=== PATIENT | female | born 1965 | race Caucasian/White ===

== ENCOUNTER 2019-04-27 15:46 | Inpatient (IN) | payer OTHER, BC ==
[~2019-04-27] VITALS: Ht 162.6 cm; Wt 76.2 kg
[2019-04-27 20:12] VITALS: BP 108/66
[2019-04-27] MEDS ORDERED: ACETAMINOPHEN 325 MG TABLET PO PRN (20:30)
[2019-04-27] MEDS ORDERED: BLOOD SUGAR DIAGNOSTIC 1 EACH STRIP IN ONE (20:30)
[2019-04-27] MEDS ORDERED: MAG HYDROX/AL HYDROX/SIMETH 30 ML UDC PO PRN (20:30)
[2019-04-27] MEDS ORDERED: MAGNESIUM HYDROXIDE 30 ML UDC PO PRN (20:30)
[2019-04-27 20:38] VITALS: BP 104/66
[2019-04-27] MEDS ORDERED: GABA-534 PO (21:52)
[2019-04-27] MEDS ORDERED: ARIP15TA3 PO (21:52)
[2019-04-27] MEDS ORDERED: SERT100T PO (21:52)
--- NOTE | 2019-04-27 23:32 | NUR ---
GPS MARINE GEAR KEEPER NOTES: ADMITTED 53 Y/O FEMALE. PT ADMITTED FROM [facility] TO [facility] UNIT ON A 5150. PER HOLD PT ENDORSES BY HAVING SUICIDAL IDEATION BY CUTTING HER WRISTS. PT REPORTED COMMANDING VOICES TO END HER LIFE. PER HOLD PT HAS HISTORY OF PRIOR SUICIDE ATTEMPT. PT STATED, "THATS WHY IM HERE BECAUSE I HEARD VOICES BUT I DON'T HEAR THEM ANYMORE." PT IS GUARDED/ RESERVED AND UNABLE TO ANSWER SOME QUESTIONS REGARDING CURRENT/PAST SUICIDE ATTEMPTS. UPON FACE TO FACE ASSESSMENT PT IS A/ O X3-4, COOPERATIVE, QUIET, ANXIOUS, COMPLIANT, NEEDY, AND DEPRESSED. PT DANIEL SI AND HI AT THIS TIME. PT REFUSED TO SIGN CONSENT PAPERS DUE TO FEELING TOO TIRED. ENVIRONMENTAL SAFETY CHECK Q15MIN. ENCOURAGE PT TO VERBALIZE FEELINGS AND CONCERNS. ORIENTED TO THE UNIT. BELONGING AND CONTRABAND WERE DONE AND CHECKED. NURSING ASSESSMENT DONE. ASSESS PT BODY AND SKIN WITH OLD SCAR NEAR HER LOWER ABDOMEN. PICTURES TAKEN AND FILED IN CHART. TOOK PICTURE OF PT FACE FOR IDENTIFICATION AND OUT IN THE CHART. PT RIGHTS DISCUSS BY AIR TRANSPORT PROFESSIONALS. PROVIDED PT WITH HANDBOOK AND MED GUIDE. TOOK PTS INITIAL BLOOD SUGAR. VITALS TAKEN ANS WNL. NO S/S PF RESP DISTRESS. NOTIFIED PSYCH DOCTOR DR MOORE AND MEDICAL WAREHOUSE MAN DR MONIQUE REGARDING ADMISSION OF PT AND MED RECON. BREATHING EVEN AND UNLABORED. CONTINUE TO MONITOR.
[2019-04-28 07:49] LABS: ALBUMIN 2.9 g/dL (3.4-5.0); BILIRUBIN,TOTAL 0.5 mg/dL (0.2-1.0); CALCIUM, SERUM 7.9 mg/dL (8.5-10.1); CREATININE 0.6 mg/dL (0.6-1.3); POTASSIUM 3.8 mmol/L (3.5-5.1); TOTAL PROTEIN, SERUM 6.5 g/dL (6.4-8.2)
[2019-04-28 07:55] LABS: CHOLESTEROL 162 mg/dL (<200); HDL CHOLESTEROL 57 mg/dL (40-60); LDL 92 mg/dL (0-99); TRIGLYCERIDES 101 mg/dL (30-150)
[2019-04-28 08:00] VITALS: BP 128/63
[2019-04-28] MEDS ORDERED: GABAPENTIN 300 MG CAPSULE PO SCH (09:00)
[2019-04-28] MEDS: NICOTINE PATCH (14MG) 14 MG PATCH.TD24 TD SCH ×2 (09:00→14:47)
--- NOTE | 2019-04-28 09:00 | NUR ---
PT IN BED ASLEEP. POOR PO INTAKE, AWAKENED AND DISCUSSED HOSPITALIZATION. ORIENTED TO PERSON PLACE AND PURPOSE. A BIT GRANDIOSE AT TIMES, STATES "I PUT THE WORD OUT ON SOCIAL MEDIA IM AN EXAMPLE TO PEOPLE AND GET HELP WITHIN THE Surphace INDUSTRY. [facility]'M [facility]. IM AN [employer] ." PT STATES SHES NOW HOMELESS AND HAS A LONG FAMILIAL HX OF SUICIDE. FATHER 1984 AND OTHERS. PT STATES SHE FELT SUICIDAL AND NEEDED HELP SO SHE TOOK THE TRAIN DOWN HERE. CURRENTLY [place] SI OR PLAN. STATES SHE NEEDS REST. REFUSED NICOTINE PATCH. WILL MONITOR FOR SAFETY AND ASSIST W NEEDS.
[2019-04-28] MEDS ORDERED: IBUPROFEN 600 MG TABLET PO PRN (12:30)
--- NOTE | 2019-04-28 13:50 | NUR ---
UR Note: SHEREE faxed a clinical to [facility] with attn to Jing B to the fax number: [phone].
--- NOTE | 2019-04-28 13:50 | NUR ---
UR Note: SHEREE called the pts CMG rn field case manager, Jing Forbes ([phone]), and left a voicemail stating that the SW will be faxing a clinical.
[2019-04-28] MEDS: TRAMADOL HCL 50 MG TABLET PO PRN ×2 (14:48→22:39)
--- NOTE | 2019-04-28 14:48 | NUR ---
RN NOTE- PT HAD REFUSED NICOTINE PATCH AT 0900 THIS MORNING. ASKED FOR NICOTINE PATCH AT THIS MOMENT. ALSO C/O PAIN TO ACHILLES AREA ON BILATERAL ANKLES. AREA W SOME EDEMA NOTED. PT AMBULATION IS LIMITED. WILL NOTIFY MD. FOLLOW UP PRN. NICOTINE PATCH GIVEN.
[2019-04-28 16:00] VITALS: BP 147/70
--- NOTE | 2019-04-28 16:15 | NUR ---
Group Note: SW encouraged pt to attend group therapy on 04/28/19 at 2pm discussing discharge planning. Pt stated that she preferred to stay in her room because she "is in pain and cannot walk." SW informed the pt that placement will be difficult due to her insurance company. SW stated that she will work with her regarding her plan.
--- NOTE | 2019-04-28 16:35 | NUR ---
RN NOTE- JASSI MEJIA HAD ME ORDER PODIATRY CONSULT FOR PTS ACHILLES NAND ANKLE/FOOT PAIN AND EDEMA. DULY NOTED AND CARRIED OUT.
[2019-04-28] MEDS: LORAZEPAM 0.5 MG TABLET PO PRN (19:45)
--- NOTE | 2019-04-28 19:45 | NUR ---
GPS/RN NOTES: PATIENT COMPLAINED OF HAVING ANXIETY. APPEARS TO BE AGITATED, PACING IN THE ROOM. ADMINISTERED ATIVAN 0.5MG PO. TOLERATED WELL. VS STABLE. WILL CONTINUE TO MONITOR ACCORDINGLY.
[2019-04-28 20:00] VITALS: BP 132/82
[2019-04-28 20:09] VITALS: BP 132/82
--- NOTE | 2019-04-28 22:40 | NUR ---
GPS/RN NOTES: PATIENT COMPLAINED OF LEVEL 8 PAIN ON HER ANKLE, ADMINISTERED ULTRAM 50MG 1 TAB PO. TOLERATED WELL. VS STABLE. WILL REASSESS AND CONTINUE MONITORING ACCORDINGLY.
[2019-04-29 08:00] VITALS: BP 125/75
[2019-04-29] MEDS: SERTRALINE HCL 50 MG TABLET PO SCH (08:38)
[2019-04-29] MEDS: ARIPIPRAZOLE 5 MG TABLET PO SCH (08:38)
[2019-04-29] MEDS: NICOTINE PATCH (14MG) 14 MG PATCH.TD24 TD SCH (08:38)
--- NOTE | 2019-04-29 09:00 | NUR ---
RN NOTE- PT CLEAN, SHOWERED, OOB AND MORE INTERACTIVE. CALM DIRECTABLE. DENIES SI HI AH VH. PO INTAKE GOOD. MED COMPLIANT. PODIATRY CONSULT AND PT CONSULT DONE
--- NOTE | 2019-04-29 13:38 | NUR ---
Initial Discharge Plan: Pt is currently homeless and states that she has been living in hotels. Per pt, she would like placement. SW will work with the pt and the MD regarding appropriate discharge planning. SW will form a safe and proper discharge.
[2019-04-29 16:00] VITALS: BP 134/81
--- NOTE | 2019-04-29 16:03 | NUR ---
Group Note: SW encouraged pt to attend group therapy on 04/29/19 at 2pm discussing impaired reality testing. Pt stated that she preferred to stay in her room because she "is in pain and cannot walk." SW stated that she can still discuss the group topic with the SW individually. Pt stated that she is more concerned about her discharge and needs placement. SW explained that the pt has an HMO and may not be placed in a SNF. Pt did not appear to comprehend once again.
[2019-04-29] MEDS: LORAZEPAM 0.5 MG TABLET PO PRN ×2 (16:06→22:20)
--- NOTE | 2019-04-29 16:06 | NUR ---
RN NOTE-ANXIETY/ PT W ANXIETY, RESTLESSNESS AND SOME IRRITATION. ALERT ORIENTED X 3. REQUESTS PRN. ATIVAN 0.5 MG GIVEN
[2019-04-29 20:42] VITALS: BP 122/85
--- NOTE | 2019-04-29 22:23 | NUR ---
GPS-RN NOTE: ANXIETY PATIENT C/O FEELING ANXIOUS. ADMINISTERED ATIVAN 0.5MG PO ORDERED. WILL CONTINUE TO MONITOR FOR PT'S SAFETY.
[2019-04-30 08:00] VITALS: BP 116/68
--- NOTE | 2019-04-30 09:00 | NUR ---
RN NOTE- PT TEARFUL THIS AM. STATES "WHERE'S MY NEURONTIN. IM ON 300MG THREE TIMES A DAY. I'VE BEEN ON IT FOR YEARS. I TAKE IT FOR ANXIETY AND IT WORKS" INFORMED PT OF NO RECORD OF NEURONTIN PRESENT IN CHART BUT WOULD HAVE MD ADDRESS, ATIVAN 0.5 MG GIVEN TO PT AT PRESENT TIME. DISCUSSED BEING CALM, DECREASING ANXIETY AND OUTCOMES. DENIES SI HI AH VH AT PRESENT
[2019-04-30] MEDS: NICOTINE PATCH (14MG) 14 MG PATCH.TD24 TD SCH (09:08)
[2019-04-30] MEDS: ARIPIPRAZOLE 5 MG TABLET PO SCH (09:08)
[2019-04-30] MEDS: SERTRALINE HCL 50 MG TABLET PO SCH (09:13)
[2019-04-30] MEDS: LORAZEPAM 0.5 MG TABLET PO PRN (09:34)
[2019-04-30] MEDS: TRAMADOL HCL 50 MG TABLET PO PRN (09:34)
--- NOTE | 2019-04-30 09:34 | NUR ---
RN NOTE- ANXIETY/PAIN. PT C/O ANXIOUSNESS AND RESTLESS FEELING. PT ALSO C/O DULL ACHING PAIN TO BOTH ANKLES AT ACHILLES AREA. ATIVAN 0.5 MG GIVEN FOR ANXIETY AND TRAMADOL 50 MG GIVEN FOR PAIN. MONITOR FOR EFFECTIVENESS.
[2019-04-30] MEDS: GABAPENTIN 300 MG CAPSULE PO SCH ×2 (14:40→17:18)
--- NOTE | 2019-04-30 14:54 | NUR ---
UR Note: SHEREE called the pts CMG outsole caser, Jing Forbes ([phone]), and explained why the pt came to [facility] and that the pt states that she would like to be discharged to a SNF and has a foot condition that may allow her to be authorized. The outsole caser stated that she would need an updated clinical.
--- NOTE | 2019-04-30 14:59 | NUR ---
UR Note: SHEREE orozco clinical to [facility] with attn to Jing Forbes to the fax number: [phone]. Addendum: 04/30/19 at 1459 by TJ BENT[facility]
[2019-04-30 16:00] VITALS: BP 113/79
--- NOTE | 2019-04-30 16:24 | NUR ---
Group Note: Pt was present in group on 04/30/19 at 2pm discussing the topic of decision making. S: "I think I got mixed up with the wrong crowd of people who took advantage of me and I decided to come to [place] to get help." O: Pt appeared to be in a euthymic mood and presented with a calm affect. Pt was more alert and coherent and was able to have a meaningful conversation. Pt maintained appropriate eye contact and was respectful of others. A: Pt understood the importance of becoming friends with individuals who will not harm her and that she has to put herself in a situation to receive help. P: SW will continue to encourage medication compliance and encourage group milieu.
[2019-04-30 20:00] VITALS: BP 118/76
--- NOTE | 2019-05-01 06:55 | NUR ---
GPS-RN NOTE: C/O HEADACHE PATIENT C/O HEADACHE ON A PAIN SCALE OF 3/10 AND REQUESTING FOR TYLENOL. ADMINISTERED ACETAMINOPHEN 650MG PO ORDERED. WILL CONTINUE TO MONITOR FOR THE EFFECTIVENESS OF THE MEDICATION.
[2019-05-01 08:00] VITALS: BP 124/79
[2019-05-01] MEDS: GABAPENTIN 300 MG CAPSULE PO SCH ×3 (08:36→17:05)
[2019-05-01] MEDS: NICOTINE PATCH (14MG) 14 MG PATCH.TD24 TD SCH (08:37)
[2019-05-01] MEDS: ARIPIPRAZOLE 5 MG TABLET PO SCH (08:37)
[2019-05-01] MEDS: SERTRALINE HCL 50 MG TABLET PO SCH (09:15)
--- NOTE | 2019-05-01 10:58 | NUR ---
UR Note: SW called Olivia Non Categorical Preschool TeacherCarlos ([phone]), and left a voicemail with the pts clinical and stated that the hospital is requesting additional time.
[2019-05-01 16:00] VITALS: BP 105/56
[2019-05-01] MEDS: TRAMADOL HCL 50 MG TABLET PO PRN (19:40)
[2019-05-01 20:00] VITALS: BP 111/83
--- NOTE | 2019-05-01 20:38 | NUR ---
GPS/SEISMIC PROSPECTING OBSERVER HELPER NURSING NOTES: PT. IN HER ROOM AWAKE. NO DISTRESS OR AGITATION NOTED. QUIET AND COOPERATIVE. NO C/O PAIN OR DISCOMFORT. SAFETY ENVIRONMENT OBSERVED AT ALL TIMES. WILL CONTINUE TO MONITOR Q 15 MIN FOR SAFETY AND BEHAVIOR.
[2019-05-02 08:00] VITALS: BP 118/84
[2019-05-02] MEDS: ARIPIPRAZOLE 5 MG TABLET PO SCH (08:01)
[2019-05-02] MEDS: NICOTINE PATCH (14MG) 14 MG PATCH.TD24 TD SCH (08:01)
[2019-05-02] MEDS: GABAPENTIN 300 MG CAPSULE PO SCH ×3 (08:02→16:03)
[2019-05-02] MEDS: SERTRALINE HCL 50 MG TABLET PO SCH (08:02)
--- NOTE | 2019-05-02 09:56 | NUR ---
Dr. Regan as the medical officer of the unit gave an order for denial of right to do room search to look for the missing shower head with the hose. Staffs made a thorough search and the thing that we are looking is not in the room.
--- NOTE | 2019-05-02 15:02 | NUR ---
UR Note: SW called Olivia Forming Machine AdjusterCarlos ([phone]), and left a voicemail with the pts clinical and stated that the hospital is requesting additional time.
[2019-05-02 15:59] VITALS: BP 108/72
[2019-05-02 20:39] VITALS: BP 123/83
[2019-05-02] MEDS: TEMAZEPAM 7.5 MG CAPSULE PO PRN (22:12)
[2019-05-03] MEDS: NICOTINE PATCH (14MG) 14 MG PATCH.TD24 TD SCH (08:43)
[2019-05-03] MEDS: SERTRALINE HCL 50 MG TABLET PO SCH (08:44)
[2019-05-03] MEDS: ARIPIPRAZOLE 5 MG TABLET PO SCH (08:44)
[2019-05-03] MEDS: GABAPENTIN 300 MG CAPSULE PO SCH ×3 (08:44→18:00)
[2019-05-03 16:00] VITALS: BP 115/81
--- NOTE | 2019-05-03 18:39 | NUR ---
PT. ISOLATIVE AND KEEPING TO SELF MOST OF DAY.
--- NOTE | 2019-05-03 19:52 | NUR ---
GPS/RN OPENING NOTES RECEIVED PATIENT IN BED, RESTING IN BED, RESPONSIVE AND ABLE TO VERBALIZE NEEDS. MONITORING FOR ANY CHANGES DISCUSSED PLAN OF CARE, TO MONITOR BEHAVIOR AND CONTINUATION OF CARE. RECEIVED REPORT FROM AM RN FOR TITI.
[2019-05-03 20:00] VITALS: BP 109/75
[2019-05-03 20:52] VITALS: BP 109/75
[2019-05-03] MEDS: TEMAZEPAM 7.5 MG CAPSULE PO PRN (21:56)
--- NOTE | 2019-05-03 21:59 | NUR ---
GPS/RN NOTES PATIENT UNABLE TO SLEEP AND REQUESTED FOR SLEEPING PILL WITH NEEDED RESTORIL 7.5 MG PO GIVEN. TOLERATED WELLS. WILL MONITOR SLEEP.
[2019-05-04 08:00] VITALS: BP 142/74
[2019-05-04] MEDS: SERTRALINE HCL 50 MG TABLET PO SCH (08:26)
[2019-05-04] MEDS: GABAPENTIN 300 MG CAPSULE PO SCH ×3 (08:26→16:32)
[2019-05-04] MEDS: ARIPIPRAZOLE 5 MG TABLET PO SCH (08:26)
[2019-05-04] MEDS: NICOTINE PATCH (14MG) 14 MG PATCH.TD24 TD SCH (08:47)
[2019-05-04 16:00] VITALS: BP 111/80
[2019-05-04 20:00] VITALS: BP 111/66
[2019-05-04 20:23] VITALS: BP 111/66
--- NOTE | 2019-05-04 21:30 | NUR ---
REFUSED SKIN ASSESSMENT PATIENT REFUSED WEEKLY SKIN ASSESSMENT, STATED, " MY SKIN IS CLEAR, I AM OK. THERE IS NO NEED TO CHECK MY SKIN." DESPITE OF RISKS & BENEFITS EXPLANATIONS, PT. CONTINUED TO REFUSE & WANTED TO SLEEP WITHOUT BOTHERING HER.
[2019-05-04] MEDS: TEMAZEPAM 7.5 MG CAPSULE PO PRN (21:37)
--- NOTE | 2019-05-04 21:38 | NUR ---
GPS/RN NOTES PATIENT UNABLE TO SLEEP AND REQUESTED FOR SLEEPING PILL WITH NEEDED RESTORIL 7.5 MG PO GIVEN. TOLERATED WELLS. WILL MONITOR SLEEP.
[2019-05-05 08:00] VITALS: BP 119/82
[2019-05-05] MEDS: SERTRALINE HCL 50 MG TABLET PO SCH (08:02)
[2019-05-05] MEDS: GABAPENTIN 300 MG CAPSULE PO SCH ×3 (08:02→17:29)
[2019-05-05] MEDS: ARIPIPRAZOLE 5 MG TABLET PO SCH (08:02)
[2019-05-05] MEDS: NICOTINE PATCH (14MG) 14 MG PATCH.TD24 TD SCH (08:02)
--- NOTE | 2019-05-05 10:19 | NUR ---
UR Note: SHEREE faxed a clinical to Airline Manager Arabella Aldana to the fax number: [phone].
[2019-05-05 16:00] VITALS: BP 113/86
[2019-05-05 20:58] VITALS: BP 113/66
[2019-05-05] MEDS: TEMAZEPAM 7.5 MG CAPSULE PO PRN (21:36)
--- NOTE | 2019-05-05 21:37 | NUR ---
GP0S RN NOTES: INSOMNIA UPON DOING ROUNDS PT AWAKE. PT ASKED FOR SLEEPING MEDICATION. OFFERED RESTORIL 7.5 MG PO PRN ORDERED. PT AGREED AND TOLERATED MEDICATION WELL. CONTINUE TO MONITOR.
[2019-05-06 08:00] VITALS: BP 129/79
[2019-05-06] MEDS: ARIPIPRAZOLE 5 MG TABLET PO SCH (08:25)
[2019-05-06] MEDS: NICOTINE PATCH (14MG) 14 MG PATCH.TD24 TD SCH (08:26)
[2019-05-06] MEDS: SERTRALINE HCL 50 MG TABLET PO SCH (08:26)
[2019-05-06] MEDS: GABAPENTIN 300 MG CAPSULE PO SCH (08:26)
--- NOTE | 2019-05-06 09:00 | NUR ---
RN NOTE- PT IN ROOM, ALERT ORIENTED TO PERSON PLACE TIME PURPOSE. BLUNTED AFFECT, APPEARS BETTER THAN SEVERAL DAYS PREVIOUSLY WHEN I SAW THIS PATIENT. SHE STATES "I FEEL GOOD. MUCH BETTER." PT TO BE DC TODAY. VS STABLE, PO INTAKE GOOD, MED COMPLIANT, DENIES SI HI AH VH.
--- NOTE | 2019-05-06 12:30 | NUR ---
APPAREL MACHINERY INSTRUCTOR NOTE- PT DC AT THIS TIME VIA TAXI TO [facility]. PT ALERT ORIENTED TO PERSON PLACE TIME AND PURPOSE. DENIES SI HI AH VH AT PRESENT MOMENT. VS STABLE, DISCHARGE INSTRUCTIONS REVIEWED AND UNDERSTOOD. PRESCRIPTIONS REVIEWED AND UNDERSTOOD. VALUABLES RETURNED AND SIGNED FOR. ID WRISTBAND REMOVED. ESCORTED OFF UNIT BY STAFF.
--- NOTE | 2019-05-06 12:33 | NUR ---
UR Note: Olivia Supervisor Intermediates, Carlos ([phone]), called the SW and left a voicemail stating that she reviewed the pts clinical that was faxed over and that she would like to set up a peer review for authorization for the following day. SW called her back and left a voicemail informing her that the pt is going to be discharged today.
--- NOTE | 2019-05-06 13:24 | NUR ---
Discharge Note: Per pt choice, pt was discharged to [facility] located at [address] [place] [address]; . Pt was transported to this location via taxi at around 12:15PM. Pt was provided with directions for her placement to [facility] located at [address] [id number]; ([phone]) where she will be residing. There was no one to notify regarding this pts discharge. Upon discharge, the pt appeared to be in a euthymic mood and presented with a distressed affect. Pt appeared to be alert and oriented x4 (time, place, self and situation). Pt presented as appropriately dressed and well groomed. Pt is ambulatory with a steady gait. Pt denied both suicidal and homicidal ideation as well as auditory and visual hallucinations. Pt was provided with homeless resources such as shelters, food nicholas, hot meals, showers, mental and physical health clinics and substance abuse referrals. Pt was referred to [facility] located at [address] [place] [address]; ; and a fax: . Pt was also referred to [facility] located at [address], [place], [place]; .
--- NOTE | 2019-05-07 09:54 | NUR ---
UR Note: Olivia [employer] Wireless Manager, Carlos ([phone]), called the SW and stated that she needed a discharge clinical to be faxed to her. SW and the pts ed case manager then discussed the need for the peer review. SW stated that she had attempted to leave clinicals and follow up as well so that the pt would receive authorization or if they considered her stable for discharge then the hospital would discharge. Pts ed case manager stated that because attempts were made and no response was given she will go back and authorize the following missing days.
--- NOTE | 2019-05-07 09:56 | NUR ---
UR Note: SHEREE faxed a discharge clinical to [facility] Arabella Aldana to the fax number: [phone].
== END 2019-05-06 12:30 | disposition home or self-care (01) | DRG 885 ==
LOC: GPS 19:06
PROVIDERS: ADMIT Psychiatry & Neurology Psychiatry; ATTEND Nurse Practitioner Acute Care
DX: F31.30 Bipolar disorder, current episode depressed, mild or moderate severity, unspecified (principal); R45.851 Suicidal ideations; F29 Unspecified psychosis not due to a substance or known physiological condition; F41.9 Anxiety disorder, unspecified; F17.200 Nicotine dependence, unspecified, uncomplicated; E66.9 Obesity, unspecified; M67.879 Other specified disorders of synovium and tendon, unspecified ankle and foot; S22.31XD Fracture of one rib, right side, subsequent encounter for fracture with routine healing; X58.XXXD Exposure to other specified factors, subsequent encounter; Z59.0 Homelessness
CPT/HCPCS: 36415; 71111-TC; 73610-TC; 73721-TC; 80053-TC; 80061-TC; 82962-TC; 87081-TC; 97116-TC; 97530-TC